=== PATIENT | male | born 1980 | race Caucasian/White ===

== ENCOUNTER 2025-04-17 16:06 | Emergency (ER) | payer OTHER, SELFPAY ==
[2025-04-17 16:13] VITALS: BP 114/48; PULSE 61; RESP 20; TEMP 36.6; O2SAT 98; BMI 35.3
[2025-04-17 16:14] VITALS: BP 124/67; PULSE 68; O2SAT 98
--- NOTE | 2025-04-17 16:35 | ED.ALLEREA ---
HPI - Allergic Reaction General Chief complaint: Allergic Reaction Stated complaint: Anaphylactic reaction to bee sting, epi/solu/benad Time Seen by Provider: 04/17/25 16:15 Source: patient Mode of arrival: EMS Limitations: no limitations History of Present Illness ED Provider: HPI narrative: Patient'44 years old with no prior history of allergic reaction to bee sting comes here while in the pool got stung by a bee on his upper lip this happened at 15:00 immediately patient had the swelling of the lip in the face patient went to the urgent care there was given EpiPen and Benadryl IM and patient is sent to the ER patient denied any shortness a breath no throat swelling or difficulty in swallowing speaking full sentences no shortness a breath no chest pain no nausea no vomiting patient never had any anaphylactic reaction to the bee in the past Related Data Previous Rx's ?Medication ?Instructions ?Recorded diphenhydramine HCl 25 mg capsule 50 mg (2 x 25 mg) PO TID PRN 04/17/25 (Benadryl) allergic reaction #30 caps epinephrine 0.3 mg/0.3 mL 0.3 mg (0.3 mL) IM Q10M PRN 04/17/25 injection, auto-injector (EpiPen anaphylaxis #2 ea 2-Johnathon) prednisone 20 mg tablet 40 mg (2 x 20 mg) PO DAILY #10 tabs 04/17/25 Allergies Allergy/AdvReac Type Severity Reaction Status Date / Time No Known Allergies Allergy Verified 04/17/25 16:16 Review of Systems Review of Systems: Yes all other systems are reviewed and are negative [facility] Social History Social History Advance Directives: No Advance Directives Information Provided: No Physical Exam ED Vital Signs: Vital Signs - 24 hr 04/17/25 16:13 Temperature 97.9 F Pulse Rate 61 Respiratory Rate 20 Blood Pressure 114/48 L Pulse Oximetry 98 Oxygen Delivery Method Room Air BMI result Body Mass Index 35.3 Appearance: Alert. Oriented X3. No acute distress. Eyes: PERRLA, No Nystagmus ENT: Pharynx normal. Oral Mucosa moist uvula normal swelling of the upper lip tongue is normal no stridor Neck: Normal inspection. Neck supple. CVS: Normal heart rate and rhythm. Pulses normal. Respiratory: No respiratory distress. Equal air entry bilateral, no wheezing/rales/rhonchi Abdomen: Soft and nontender. Bowel sounds are present, no mass palpable, no CVA tenderness Skin: Skin warm and dry. Normal skin color. Normal skin turgor. Extremities: No lower extremity edema. No calf tenderness Neuro: Oriented X 3. Medical Decision Making Medical Decision Making MDM Narrative: Patient with localized allergic reaction to bee sting was given epi and Benadryl because of the location of the swelling patient does not have any swelling of the oral cavity no difficulty in breathing was given steroids in the ER advised to report to the ED if worsening of the swelling was given a prescription of prednisone and Benadryl and EpiPen Discharge Plan Discharge Clinical Impression: Allergic reaction Patient Disposition: Home, Self-Care Instructions: General Allergic Reaction (ED) Additional Instructions: You have allergic reaction to bee sting Take Benadryl and prednisone as prescribed EpiPen for allergic reaction in the future Report to the ER if worsening of the swelling or rash /difficulty in breathing Prescriptions: New epinephrine [EpiPen 2-Johnathon] 0.3 mg/0.3 mL auto-injector 0.3 mg IM Q10M PRN (Reason: anaphylaxis) Qty: 2 0RF Rx Instructions: for 2 doses diphenhydramine HCl [Benadryl] 25 mg capsule 50 mg PO TID PRN (Reason: allergic reaction) Qty: 30 0RF prednisone 20 mg tablet 40 mg PO DAILY Qty: 10 0RF Print Language: Khmer
[2025-04-17 17:45] VITALS: BP 100/57; PULSE 57; RESP 20; TEMP 36.6; O2SAT 97
[2025-04-17 17:52] VITALS: BP 100/57; PULSE 57; RESP 20; TEMP 36.6; O2SAT 97
== END 2025-04-17 17:52 | disposition home or self-care (01) ==
PROVIDERS: Emergency Provider Internal Medicine; PCP Internal Medicine
DX: T63.441A Toxic effect of venom of bees, accidental (unintentional), initial encounter (principal); R22.0 Localized swelling, mass and lump, head; Y92.9 Unspecified place or not applicable
CPT/HCPCS: 96374; 99282; 99284; J2919